=== PATIENT | female | born 1985 | race African-American/Black ===

== ENCOUNTER 2025-06-05 21:23 | Emergency (ER) | payer SELFPAY ==
[2025-06-05] MEDS ORDERED: Ketorolac Tromethamine 30 MG (1 mL) VIAL ONE (21:57)
[2025-06-05] MEDS ORDERED: Acetaminophen 500 MG TAB ONE (21:57)
== END 2025-06-05 23:00 | disposition home or self-care (01) ==
LOC: ERS 21:23
DX: M25.512 Pain in left shoulder (principal); Z55.6 Problems related to health literacy
CPT/HCPCS: 93005; 96372; 99283; J1885